=== PATIENT | female | born 1965 | race Caucasian/White ===

== ENCOUNTER 2017-10-09 08:30 | Emergency (ER) | payer BC ==
[2017-10-09 08:36] VITALS: BP 157/82; PULSE 97; RESP 18; TEMP 99.3
[2017-10-09] MEDS ORDERED: DIPH,PERTUS(ACELL)TETVAC-LF 0.5 ML VIAL IM ONE (08:55)
[2017-10-09] MEDS ORDERED: TOPICAL SKIN ADHESIVE 1 EACH AMP TOPICAL ONE (08:55)
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
== END 2017-10-09 09:30 | disposition home or self-care (01) ==
LOC: EC 08:30
DX: S01.312A Laceration without foreign body of left ear, initial encounter (principal); I10 Essential (primary) hypertension; Z23 Encounter for immunization; Z79.899 Other long term (current) drug therapy; Z88.2 Allergy status to sulfonamides; Z88.5 Allergy status to narcotic agent; Z91.013 Allergy to seafood; Z91.011 Allergy to milk products; Z91.018 Allergy to other foods; Z88.8 Allergy status to other drugs, medicaments and biological substances; Y09 Assault by unspecified means; Y92.009 Unspecified place in unspecified non-institutional (private) residence as the place of occurrence of the external cause
CPT/HCPCS: 12013; 90471; 90715; 99282

== ENCOUNTER 2017-11-03 13:29 | Observation (INO) | payer BC ==
[2017-11-03] MEDS ORDERED: ASPIRIN 81 MG PO STA (13:59)
[2017-11-03] MEDS ORDERED: NITROGLYCERIN OINT 1 INCH/GM PACKET TOPICAL STA (13:59)
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
[2017-11-03 14:19] LABS: Basophils % (A) 0 %; Eosinophils # (A) 0.3 k/uL (0-0.7); Eosinophils % (A) 3 %; HCT 40.2 % (34.0-46.0); HGB 12.8 gm/dL (11.4-16.0); Lymphocytes # (A) 2.8 k/uL (1.0-4.8); Lymphocytes % (A) 29 %; MCH 29.1 pg (25.0-35.0); MCHC 31.9 g/dL (31.0-37.0); MCV 91.3 fL (80.0-100.0); Mean Platelet Volume 7.5; Monocytes # (A) 0.3 k/uL (0-1.0); Monocytes % (A) 4 %; Neutrophils % (A) 62 %; Platelet Count 260 k/uL (150-450); RBC 4.41 m/uL (3.80-5.40); RDW 12.2 % (11.5-15.5); WBC 9.6 k/uL (3.8-10.6)
--- NOTE | 2017-11-03 14:27 | XR ---
EXAMINATION TYPE: XR chest 2V DATE OF EXAM: 11/03/2017 COMPARISON: 12/31/2014 INDICATION: Chest pain TECHNIQUE: Frontal and lateral views of the chest are obtained. FINDINGS: The heart size is normal. The pulmonary vasculature is normal. The lungs are clear. IMPRESSION: 1. No acute pulmonary process.
[2017-11-03 14:28] LABS: ALT 29 U/L (9-52); AST 19 U/L (14-36); Albumin 4.4 g/dL (3.5-5.0); Alkaline Phosphatase 98 U/L (38-126); Anion Gap 13 mmol/L; Blood Urea Nitrogen 14 mg/dL (7-17); Calcium 9.6 mg/dL (8.4-10.2); Carbon Dioxide 24 mmol/L (22-30); Chloride 104 mmol/L (98-107); Glucose 127 mg/dL (74-99); Magnesium 1.9 mg/dL (1.6-2.3); Potassium 3.9 mmol/L (3.5-5.1); Prothrombin Time 9.6 sec (9.0-12.0); Sodium 141 mmol/L (137-145); Total Bilirubin 0.3 mg/dL (0.2-1.3); Total Protein 7.8 g/dL (6.3-8.2)
[2017-11-03 14:39] LABS: Creatine Kinase 92 U/L (30-135)
[2017-11-03 14:52] LABS: Creatine Kinase MB 0.6 ng/mL (0.0-2.4); Troponin I <0.012 ng/mL (0.000-0.034)
[2017-11-03 14:55] LABS: Partial Thromboplastin Time 21.2 sec (22.0-30.0)
[2017-11-03] MEDS ORDERED: NITROGLYCERIN SL TABS 0.4 MG TAB SUBLINGUAL PRN (15:41)
[2017-11-03] MEDS: NITROGLYCERIN OINT 1 INCH/GM PACKET TOPICAL SCH ×2 (19:20→22:38)
[2017-11-03 20:15] LABS: Creatine Kinase 75 U/L (30-135)
[2017-11-03] MEDS ORDERED: ONDANSETRON 4 MG/2 ML VIAL IVP PRN (20:26)
[2017-11-03 20:29] LABS: Creatine Kinase MB 0.4 ng/mL (0.0-2.4); Troponin I <0.012 ng/mL (0.000-0.034)
[2017-11-03] MEDS ORDERED: MONTELUKAST 10 MG TAB PO SCH (21:00)
[2017-11-03] MEDS ORDERED: LISINOPRIL 10 MG TAB PO SCH (21:00)
[2017-11-04 03:27] LABS: Cholesterol 206 mg/dL (<200); HDL Cholesterol 57 mg/dL (40-60); LDL Cholesterol,Calculated 116 mg/dL (0-99); Triglycerides 163 mg/dL (<150)
[2017-11-04 03:44] LABS: Creatine Kinase 72 U/L (30-135)
[2017-11-04 03:58] LABS: Creatine Kinase MB 0.3 ng/mL (0.0-2.4); Troponin I <0.012 ng/mL (0.000-0.034)
[2017-11-04] MEDS: NITROGLYCERIN OINT 1 INCH/GM PACKET TOPICAL SCH ×2 (05:05→13:28)
[2017-11-04] MEDS ORDERED: ASPIRIN 325 MG TAB PO SCH (09:00)
--- NOTE | 2017-11-04 09:23 | P.CRDCN ---
History of Present Illness Consult date: 11/04/17 History of present illness: This is a 52-year-old female with history of hypertensive coronary vascular disease being treated with lisinopril has been feeling exhausted for the last 6 months. She also complains of intermittent swelling in the right leg. Yesterday she woke up with the feeling of tightness in the chest. This is followed by some vague feeling in the left arm. Patient finally came to the emergency room. She was treated with the night to placed on heparin with gradual improvement of her symptoms. She is feeling better today. Her EKGs did not show any acute changes. Cardiac enzyme studies are negative. I'm going to order d-dimer and also TSH and free T4. I'm going to get an echocardiogram done. If necessary, a venous duplex study of the right leg could be an considered, especially if d-dimer is elevated. Further recommendation to follow Past Medical History Past Medical History: Asthma, Diabetes Mellitus, Hyperlipidemia, Hypertension Additional Past Medical History / Comment(s): past stress test approx 9 years ago,pt stated dm but chooses not to take the medications, History of Any Multi-Drug Resistant Organisms: None Reported Past Surgical History: Section, Cholecystectomy, Hernia Repair Past Anesthesia/Blood Transfusion Reactions: No Reported Reaction Smoking Status: Former smoker - Past Family History Father Family Medical History: COPD, Diabetes Mellitus, Hyperlipidemia, Hypertension Additional Family Medical History / Comment(s): . Mother Family Medical History: Diabetes Mellitus, Hyperlipidemia, Hypertension, Mitral Valve Prolapse (MVP), Renal Disease Medications and Allergies Home Medications Medication Instructions Recorded Confirmed Type Cetirizine HCl [Zyrtec] 10 mg PO DAILY PRN 12/31/14 11/03/17 History Lisinopril [Zestril] 10 mg PO HS 12/31/14 11/03/17 History Montelukast [Singulair] 10 mg PO HS 12/31/14 11/03/17 History Albuterol Nebulized [Ventolin 2.5 mg INHALATION RT-Q6H PRN 10/09/17 11/03/17 History Nebulized] cloNIDine HCL [Catapres] 0.1 mg PO DAILY PRN 10/09/17 11/03/17 History Fluticasone Nasal [place] [Flonase 1 spray EA NOSTRIL DAILY PRN 11/03/17 11/03/17 History Nasal [place]] Allergies Allergy/AdvReac Type Severity Reaction Status Date / Time avocado Allergy Unknown Verified 11/03/17 14:51 Fish Containing Products Allergy Unknown Verified 11/03/17 14:51 [Fish] milk Allergy Unknown Verified 11/03/17 14:51 shellfish derived [Shrimp] Allergy Unknown Verified 11/03/17 14:51 codeine AdvReac Hallucinati Verified 11/03/17 14:51 ons ezetimibe [From Zetia] AdvReac Swelling Verified 11/03/17 14:51 Sulfa (Sulfonamide AdvReac Cough Verified 11/03/17 14:51 Antibiotics) Physical Exam Vitals: Vital Signs Temp Pulse Pulse Pulse Resp BP BP 11/04/17 08:00 98.2 F 68 18 137/87 11/04/17 07:59 71 16 11/04/17 04:00 98.7 F 71 16 130/77 11/04/17 03:54 18 11/03/17 23:36 18 11/03/17 22:11 77 18 128/63 11/03/17 20:00 18 11/03/17 19:41 97.9 F 72 18 167/76 11/03/17 17:21 16 11/03/17 16:38 97.8 F 65 16 150/72 11/03/17 16:13 85 16 135/75 11/03/17 15:14 64 16 137/75 11/03/17 14:16 68 16 138/77 11/03/17 13:38 98.7 F 87 16 163/74 Pulse Ox 11/04/17 08:00 96 11/04/17 07:59 11/04/17 04:00 95 11/04/17 03:54 11/03/17 23:36 11/03/17 22:11 94 L 11/03/17 20:00 11/03/17 19:41 93 L 11/03/17 17:21 11/03/17 16:38 97 11/03/17 16:13 97 11/03/17 15:14 99 11/03/17 14:16 98 11/03/17 13:38 93 L Intake and Output 11/03/17 11/04/17 11/04/17 22:59 06:59 14:59 Other: Voiding Method Toilet Toilet Toilet GENERAL EXAM: Patient is alert and oriented and doesn't appear to be in any acute distress HEENT: Normocephalic. Normal reaction of pupils, equal size, normal range of extraocular motion. No erythema or exudates in the throat. NECK: No masses, no nuchal rigidity. CHEST: No chest wall deformity. LUNGS: Equal air entry with no crackles or wheeze. HEART: S1 and S2 normal with no audible mumurs or gallops. Regular rhythm, femorals equal on both sides.. ABDOMEN: No hepatosplenomegaly, normal bowel sounds, no guarding or rigidity. SKIN: No rashes CENTRAL NERVOUS SYSTEM: No focal deficits. EXTREMITIES: No cyanosis, clubbing or edema. Results 11/03/17 14:05 11/03/17 14:05 Cardiac Enzymes 11/03/17 11/03/17 11/03/17 Range/Units 14:05 14:05 19:34 AST 19 (14-36) U/L CK-MB (CK-2) 0.6 0.4 (0.0-2.4) ng/mL Troponin I <0.012 <0.012 (0.000-0.034) ng/mL 11/04/17 Range/Units 02:51 AST (14-36) U/L CK-MB (CK-2) 0.3 (0.0-2.4) ng/mL Troponin I <0.012 (0.000-0.034) ng/mL Coagulation 11/03/17 Range/Units 14:05 PT 9.6 (9.0-12.0) sec APTT 21.2 L (22.0-30.0) sec Lipids 11/04/17 Range/Units 02:51 Triglycerides 163 H (<150) mg/dL Cholesterol 206 H (<200) mg/dL HDL Cholesterol 57 (40-60) mg/dL CBC 11/03/17 Range/Units 14:05 WBC 9.6 (3.8-10.6) k/uL RBC 4.41 (3.80-5.40) m/uL Hgb 12.8 (11.4-16.0) gm/dL Hct 40.2 (34.0-46.0) % Plt Count 260 (150-450) k/uL Comprehensive Metabolic Panel 11/03/17 Range/Units 14:05 Sodium 141 (137-145) mmol/L Potassium 3.9 (3.5-5.1) mmol/L Chloride 104 (98-107) mmol/L Carbon Dioxide 24 (22-30) mmol/L BUN 14 (7-17) mg/dL Creatinine 0.80 (0.52-1.04) mg/dL Glucose 127 H (74-99) mg/dL Calcium 9.6 (8.4-10.2) mg/dL AST 19 (14-36) U/L ALT 29 (9-52) U/L Alkaline Phosphatase 98 (38-126) U/L Total Protein 7.8 (6.3-8.2) g/dL Albumin 4.4 (3.5-5.0) g/dL Current Medications Generic Name Dose Route Start Last Admin Trade Name Freq PRN Reason Stop Dose Admin Aspirin 325 mg 11/04/17 09:00 Aspirin PO DAILY [facility] Lisinopril 10 mg 11/03/17 21:00 11/03/17 20:27 Zestril PO 10 mg HS BRAYAN Administration Montelukast Sodium 10 mg 11/03/17 21:00 11/03/17 20:27 Singulair PO 10 mg HS BRAYAN Administration Nitroglycerin 1 inch 11/03/17 18:00 11/04/17 05:05 Nitro-Bid Oint TOPICAL Not Given Q6HR [facility] Nitroglycerin 0.4 mg 11/03/17 15:41 Nitrostat SUBLINGUAL Q5M PRN Chest Pain Ondansetron HCl 4 mg 11/03/17 20:26 Zofran IVP Q6HR PRN Nausea And Vomiting Intake and Output 11/03/17 11/04/17 11/04/17 22:59 06:59 14:59 Other: Voiding Method Toilet Toilet Toilet 11/03/17 14:05 11/03/17 14:05 EKG Interpretations (text) Sinus rhythm Assessment and Plan (1) Fatigue Current Visit: Yes Status: Acute Code(s): R53.83 - OTHER FATIGUE SNOMED Code(s): 73814579 (2) Hypertension Current Visit: Yes Status: Acute Code(s): I10 - ESSENTIAL (PRIMARY) HYPERTENSION SNOMED Code(s): 66892689 (3) Chest pain Current Visit: Yes Status: Acute Code(s): R07.9 - CHEST PAIN, UNSPECIFIED SNOMED Code(s): 31786643 (4) Right leg swelling Current Visit: Yes Status: Acute Code(s): M79.89 - OTHER SPECIFIED SOFT TISSUE DISORDERS SNOMED Code(s): 329397356 Plan: Patient EKGs and blood work are so far normal. I will get a d-dimer value and thyroid function studies. Echocardiogram will be done. Further recommendations to follow.
[2017-11-04 12:07] VITALS: BP 141/65; PULSE 72; RESP 16; TEMP 98.1
--- NOTE | 2017-11-04 13:55 | ECHOF ---
Referral Reason:Chest pain and cardiomyopathy MEASUREMENTS -------- HEIGHT: 160.0 cm WEIGHT: 109.8 kg BP: 137/87 IVSd: 1.6 cm (0.6 - 1.1) LVIDd: 4.7 cm (3.9 - 5.3) LVPWd: 1.5 cm (0.6 - 1.1) IVSs: 2.5 cm LVIDs: 2.9 cm LVPWs: 2.0 cm Ao Diam: 3.0 cm (2.0 - 3.7) AV Cusp: 2.0 cm (1.5 - 2.6) LA Diam: 3.7 cm (2.7 - 3.8) MV EXCURSION: 14.577 mm (> 18.000) MV EF SLOPE: 62 mm/s (70 - 150) EPSS: 0.5 cm MV E Kailash: 1.03 m/s MV DecT: 222 ms MV A Kailash: 0.76 m/s MV E/A Ratio: 1.36 RAP: 5.00 mmHg RVSP: 14.52 mmHg FINDINGS -------- Sinus rhythm. This was a technically good study. The left ventricular size is normal. There is moderate concentric left ventricular hypertrophy. L eft ventricular systolic function is hyperdynamic with an estimated EF of >70%. The right ventricle is normal in size. The left atrium is normal in size. The right atrium is normal in size. Aortic valve is trileaflet and is mildly thickened. There is trace mitral regurgitation. Trace tricuspid regurgitation present. The right ventricular systolic pressure, as measured by Dopp ler, is 14.52mmHg. Pulmonic valve appears structurally normal. The aortic root size is normal. The pericardium is normal. CONCLUSIONS -------- 1. Sinus rhythm. 2. This was a technically good study. 3. The left ventricular size is normal. 4. There is moderate concentric left ventricular hypertrophy. 5. Left ventricular systolic function is hyperdynamic with an estimated EF of >70%. 6. The right ventricle is normal in size. 7. The left atrium is normal in size. 8. The right atrium is normal in size. 9. Aortic valve is trileaflet and is mildly thickened. 10. There is trace mitral regurgitation. 11. Trace tricuspid regurgitation present. 12. The right ventricular systolic pressure, as measured by Doppler, is 14.52mmHg. 13. Pulmonic valve appears structurally normal. 14. The aortic root size is normal. 15. The pericardium is normal. [employer]PHOL[employer]O TRIMMER: Thi Robles RDCS
--- NOTE | 2017-11-04 23:23 | HP ---
HISTORY AND PHYSICAL CHIEF COMPLAINT: Chest pain. HISTORY OF PRESENT ILLNESS: This 52-year-old woman who had a past medical history of multiple medical problems, including diabetes, asthma, hypertension, hyperlipidemia. Two recent stress tests about 9 years ago, is complaining of chest pain. The pain started around 3:00 a.m. last night and felt in the upper chest like a steady pressure and some associated shortness of breath and nausea was noted and the patient had some odd sensation in the left arm also and the patient came to [facility] and admitted for further evaluation and treatment. The troponins are negative. The lipids are elevated, the cholesterol 201, LDL 111 and Cardiology saw the patient and recommended the patient to follow up in the outpatient setting with possible stress test. A 2D echo was also done which did not show any acute abnormality. Ejection fraction found to be more than 70. PAST MEDICAL HISTORY: History of asthma, diabetes, hypertension, hyperlipidemia. MEDICATIONS PRIOR TO ADMISSION: Include: 1. Fluticasone 1 spray daily p.r.n. 2. Catapres 0.1 daily p.r.n. 3. Singulair 10 mg daily. 4. Zestril 10 mg q.h.s. 5. Zyrtec 10 mg b.i.d. p.r.n. 6. Ventolin 2.5 every 6 hours. 7. Nitrostat 0.4 sublingual p.r.n. 8. Ecotrin 81 mg daily. ALLERGIES: Are AV[place]ADO, FISH, MILK, SHELLFISH, CODEINE, ZETIA, SULFA. FAMILY HISTORY: History of COPD, diabetes, hypertension. SOCIAL HISTORY: History of smoking, occasional alcohol intake. REVIEW OF SYSTEMS: ENT: No diminished hearing, diminished vision. CARDIOVASCULAR: As mentioned earlier. RESPIRATORY: As mentioned earlier. GI: No nausea or vomiting. : No dysuria. NERVOUS: No numbness or weakness. ALLERGY/IMMUNOLOGY: As mentioned earlier, history of asthma. CONSTITUTIONAL: As mentioned earlier. DERMATOLOGY: Negative. RHEUMATOLOGY: Negative. PSYCHIATRY: As mentioned earlier. EXAMINATION: Alert and oriented x3. Pulse is 72, blood pressure 141/68, respirations 16, temperature 98.2, pulse ox 96% on room air. HEENT: Conjunctivae normal. Oral mucosa moist. NECK: No jugular venous distention. No carotid bruits. No lymph node enlargement. CARDIOVASCULAR: S1, S2 muffled. No S3. No S4. RESPIRATORY: Breath sounds diminished in the bases. A few scattered rhonchi and crackles. ABDOMEN: Soft, nontender. No mass palpable. LEGS: No edema. No swelling. NERVOUS SYSTEM: Higher functions as mentioned earlier. Moves all 4 limbs. No focal motor or sensory deficits. LYMPHATIC: No lymphadenopathy in neck or axillae. SKIN: No ulcer, rash or bleeding. LAB STUDIES: At this time shows CBC within normal limits. Troponins are negative. Cholesterol 206. ASSESSMENT: 1. Chest pain, myocardial infarction ruled out, possible musculoskeletal. Rule out coronary artery disease. 2. History of diabetes mellitus. 3. Hypertension. 4. Hyperlipidemia. 5. History of asthma. 6. History of cholecystectomy. RECOMMENDATIONS AND DISCUSSION: In this 52-year-old woman who presented with multiple complex medical issues, will monitor the patient. The patient is symptomatic at this time. Otherwise, myocardial infarction ruled out. Cardiology saw the patient. 2D echo did not show any acute abnormality. The patient will be discharged in a stable condition with a guarded prognosis with cardiology recommendations for possible outpatient stress test. Home medications to be continued and along with recommended medications: 1. Albuterol 2.5 q.i.d. p.r.n. 2. Ecotrin 81 mg. 3. Zyrtec 10 mg daily. 4. Catapres 0.1 p.r.n. 5. Flonase p.r.n. 6. Zestril 10 mg q.h.s. 7. Singular 10 mg q.h.s. 8. Nitrostat 0.4 mg sublingual p.r.n. MMJESSIE / LIONELN: [id number] /
== END 2017-11-04 13:31 | disposition home or self-care (01) ==
LOC: EC 13:29 → 3OBS 15:41 → 3SUR 18:58
PROVIDERS: ADMIT Internal Medicine; ATTEND Internal Medicine
DX: R07.89 Other chest pain (principal); R11.0 Nausea; R06.00 Dyspnea, unspecified; R53.83 Other fatigue; E11.9 Type 2 diabetes mellitus without complications; I11.9 Hypertensive heart disease without heart failure; E78.5 Hyperlipidemia, unspecified; M79.89 Other specified soft tissue disorders; J45.909 Unspecified asthma, uncomplicated; Z91.14 Patient's other noncompliance with medication regimen; Z79.899 Other long term (current) drug therapy; Z79.82 Long term (current) use of aspirin; Z91.011 Allergy to milk products; Z88.5 Allergy status to narcotic agent; Z91.013 Allergy to seafood; Z88.2 Allergy status to sulfonamides; Z88.8 Allergy status to other drugs, medicaments and biological substances; Z91.018 Allergy to other foods; Z87.891 Personal history of nicotine dependence; Z82.5 Family history of asthma and other chronic lower respiratory diseases; Z82.49 Family history of ischemic heart disease and other diseases of the circulatory system; Z90.49 Acquired absence of other specified parts of digestive tract
CPT/HCPCS: 36415; 71046; 80053; 80061; 82550; 82553; 83735; 84443; 84484; 85025; 85379; 85610; 85730; 93005; 93306; 99285

== ENCOUNTER 2022-12-14 07:52 | Emergency (ER) | payer BC ==
[2022-12-14 07:58] VITALS: RESP 18
[2022-12-14] MEDS ORDERED: SODIUM CHLORIDE 0.9% 1,000 ML IV STA (08:24)
[2022-12-14] MEDS ORDERED: ONDANSETRON 4 MG/2 ML VIAL IVP STA (08:24)
--- NOTE | 2022-12-14 08:28 | ED ---
General Adult HPI - General Chief complaint: Nausea/Vomiting/Diarrhea Stated complaint: NVD Time Seen by Provider: 12/14/22 08:07 Source: patient, RN notes reviewed, old records reviewed Mode of arrival: ambulatory Limitations: no limitations - History of Present Illness Initial comments: 57-year-old female with chief complaint of vomiting and diarrhea. She was diagnosed with coronavirus one week ago. She initially had sore throat with no gastrointestinal symptoms. Over the past 3 days she developed foul-smelling belching and subsequently developed vomiting and diarrhea. Over the past 12 hours she's had more than 10 episodes of both vomiting and diarrhea. She does have upper abdominal pain associated with this. - Related Data Home Medications Medication Instructions Recorded Confirmed Cetirizine HCl [Zyrtec] 10 mg PO DAILY PRN 12/31/14 11/03/17 Montelukast [Singulair] 10 mg PO HS 12/31/14 11/03/17 lisinopriL [Zestril] 10 mg PO HS 12/31/14 11/03/17 Albuterol Nebulized [Ventolin 2.5 mg INHALATION RT-Q6H PRN 10/09/17 11/03/17 Nebulized] cloNIDine HCL [Catapres] 0.1 mg PO DAILY PRN 10/09/17 11/03/17 Fluticasone Nasal [place] [Flonase 1 spray EA NOSTRIL DAILY PRN 11/03/17 11/03/17 Nasal [place]] Previous Rx's Medication Instructions Recorded Aspirin EC [Ecotrin Low Dose] 81 mg PO DAILY #20 tablet. 11/04/17 Nitroglycerin Sl Tabs [Nitrostat] 0.4 mg SUBLINGUAL Q5M PRN #20 tab 11/04/17 Allergies Allergy/AdvReac Type Severity Reaction Status Date / Time avocado Allergy Unknown Verified 11/03/17 14:51 Fish Containing Products Allergy Unknown Verified 11/03/17 14:51 [Fish] milk Allergy Unknown Verified 11/03/17 14:51 shellfish derived [Shrimp] Allergy Unknown Verified 11/03/17 14:51 codeine AdvReac Hallucinati Verified 11/03/17 14:51 ons ezetimibe [From Zetia] AdvReac Swelling Verified 11/03/17 14:51 Sulfa (Sulfonamide AdvReac Cough Verified 11/03/17 14:51 Antibiotics) Review of Systems ROS Statement: Those systems with pertinent positive or pertinent negative responses have been documented in the HPI. ROS Other: All systems not noted in ROS Statement are negative. Past Medical History Past Medical History: Asthma, Diabetes Mellitus, Hyperlipidemia, Hypertension Additional Past Medical History / Comment(s): past stress test approx 9 years ago,pt stated dm but chooses not to take the medications, History of Any Multi-Drug Resistant Organisms: None Reported Past Surgical History: Section, Cholecystectomy, Hernia Repair Past Anesthesia/Blood Transfusion Reactions: No Reported Reaction Past Psychological History: No Psychological Hx Reported Smoking Status: Former smoker Past Alcohol Use History: Occasional Past Drug Use History: Marijuana - Past Family History Father Family Medical History: COPD, Diabetes Mellitus, Hyperlipidemia, Hypertension Additional Family Medical History / Comment(s): . Mother Family Medical History: Diabetes Mellitus, Hyperlipidemia, Hypertension, Mitral Valve Prolapse (MVP), Renal Disease General Exam Limitations: no limitations General appearance: alert, in no apparent distress Head exam: Present: atraumatic, normocephalic Eye exam: Present: normal appearance, PERRL ENT exam: Present: mucous membranes dry Neck exam: Present: normal inspection. Absent: tenderness, meningismus Respiratory exam: Present: normal lung sounds bilaterally. Absent: respiratory distress, wheezes Cardiovascular Exam: Present: regular rate, normal rhythm GI/Abdominal exam: Present: distended, tenderness. Absent: guarding, rebound Extremities exam: Present: normal inspection, normal capillary refill. Absent: pedal edema Neurological exam: Present: alert, oriented X3, CN II-XII intact. Absent: motor sensory deficit Psychiatric exam: Present: normal affect, normal mood Skin exam: Present: warm, dry, intact. Absent: cyanosis, diaphoretic Course Vital Signs 12/14/22 07:53 Temperature 98.2 F Pulse Rate 103 H Respiratory 18 Rate Blood Pressure 112/79 O2 Sat by Pulse 94 L Oximetry Medical Decision Making - Medical Decision Making Was pt. sent in by a medical professional or institution ([facility], [facility], urgent care, hospital, or detention...) When possible be specific @ -No Did you speak to anyone other than the patient for history (EMS, parent, family, police, friend...)? What history was obtained from this source @ -No Did you review nursing and triage notes (agree or disagree)? Why? @ -I reviewed and agree with nursing and triage notes Were old charts reviewed (outside hosp., previous admission, EMS record, old EKG, old radiological studies, urgent care reports/EKG's, detention records)? Report findings @ -No old charts were reviewed Differential Diagnosis (chest pain, altered mental status, abdominal pain women, abdominal pain men, vaginal bleeding, weakness, fever, dyspnea, syncope, headache, dizziness, GI bleed, back pain, seizure, CVA, palpatations, mental health, musculoskeletal)? @ -Differential Abdominal Pain Women: Appendicitis, Cholecystitis, diverticulosis, ischemic bowel, pancreatitis, hepatitis, UTI, gastroenteritis, AAA, incarcerated hernia, bowel obstruction, constipation, inflammatory bowel, hepatitis, peptic ulcer disease, splenic infarction, perforated viscus, vulvitis, ovarian torsion, PID, kidney stone, placenta abruption, this is not meant to be an all-inclusive list EKG interpreted by me (3pts min.). @ -As above X-rays interpreted by me (1pt min.). @ -None done CT interpreted by me (1pt min.). @ -Performed showing a mild colitis, no other acute findings, reviewed by tamie f U/S interpreted by me (1pt. min.). @ -None done What testing was considered but not performed or refused? (CT, X-rays, U/S, labs)? Why? @ -None What meds were considered but not given or refused? Why? @ -I did offer pain medication but patient declined Did you discuss the management of the patient with other professionals (professionals i.e. , PA, [facility], lab, RT, psych nurse, mental health social worker, professional bass fisher, teacher, parking control officer, dependency case manager)? Give summary @ -No Was smoking cessation discussed for >3mins.? @ -No Was critical care preformed (if so, how long)? @ -No Were there social determinants of health that impacted care today? How? (Homelessness, low income, unemployed, alcoholism, drug addiction, transportation, low edu. Level, literacy, decrease access to med. care, detention, rehab)? @ -No Was there de-escalation of care discussed even if they declined (Discuss DNR or withdrawal of care, Hospice)? DNR status @ -No What co-morbidities impacted this encounter? (DM, HTN, Smoking, COPD, CAD, Cancer, CVA, ARF, Chemo, Hep., AIDS, mental health diagnosis, sleep apnea, mor bid obesity)? @ -None Was patient admitted / discharged? Hospital course, mention meds given and route, prescriptions, significant lab abnormalities, going to OR and other pertinent info. @ -57-year-old female with abdominal pain, vomiting diarrhea. History and exam consistent with an enteritis colitis picture. I did perform laboratory testing which showed a mild leukocytosis, stable hemoglobin, normal kidney function, normal electrolytes. CT was performed the ongoing nature of her symptoms. This showed colitis without any other acute findings. Patient hydrated in the emergency department. She is informed of the results of workup and will be discharged with outpatient follow-up at this time. Undiagnosed new problem with uncertain prognosis? @ -No Drug Therapy requiring intensive monitoring for toxicity (Heparin, Nitro, Insulin, Cardizem)? @ -No Were any procedures done? @ -No Diagnosis/symptom? @ -Vomiting diarrhea, abdominal pain Acute, or Chronic, or Acute on Chronic? @ -Acute Uncomplicated (without systemic symptoms) or Complicated (systemic symptoms)? @ -Uncomplicated Side effects of treatment? @ -No Exacerbation, Progression, or Severe Exacerbation? @ -No Poses a threat to life or bodily function? How? (Chest pain, [place], [place], pneumonia, PE, COPD, DKA, ARF, appy, cholecystitis, CVA, Diverticulitis, Homicidal, Suicidal, threat to staff... and all critical care pts) @ -No - Lab Data Result diagrams: 12/14/22 08:25 12/14/22 08:25 Lab Results 12/14/22 12/14/22 Range/Units 08:25 08:25 WBC 12.0 H (3.8-10.6) k/uL RBC 5.07 (3.80-5.40) m/uL Hgb 15.3 (11.4-16.0) gm/dL Hct 45.0 (34.0-46.0) % MCV 88.8 (80.0-100.0) fL MCH 30.1 (25.0-35.0) pg MCHC 33.9 (31.0-37.0) g/dL RDW 12.6 (11.5-15.5) % Plt Count 302 (150-450) k/uL MPV 7.4 Neutrophils % 79 % Lymphocytes % 15 % Monocytes % 3 % Eosinophils % 2 % Basophils % 0 % Neutrophils # 9.5 H (1.3-7.7) k/uL Lymphocytes # 1.8 (1.0-4.8) k/uL Monocytes # 0.3 (0-1.0) k/uL Eosinophils # 0.2 (0-0.7) k/uL Basophils # 0.0 (0-0.2) k/uL Sodium 138 (137-145) mmol/L Potassium 4.0 (3.5-5.1) mmol/L Chloride 108 H (98-107) mmol/L Carbon Dioxide 20 L (22-30) mmol/L Anion Gap 10 mmol/L BUN 18 H (7-17) mg/dL Creatinine 0.84 (0.52-1.04) mg/dL Est GFR (CKD-EPI)AfAm 89 (>60 ml/min/1.73 sqM) Est GFR (CKD-EPI)NonAf 77 (>60 ml/min/1.73 sqM) Glucose 165 H (74-99) mg/dL Calcium 9.3 (8.4-10.2) mg/dL Total Bilirubin 0.7 (0.2-1.3) mg/dL AST 26 (14-36) U/L ALT 24 (4-34) U/L Alkaline Phosphatase 79 (38-126) U/L Total Protein 7.3 (6.3-8.2) g/dL Albumin 4.4 (3.5-5.0) g/dL Lipase 123 (23-300) U/L Disposition Clinical Impression: Dehydration, Vomiting and diarrhea Disposition: HOME SELF-CARE Condition: Good Instructions (If sedation given, give patient instructions): Acute Nausea and Vomiting (ED), Acute Diarrhea (ED) Is patient prescribed a controlled substance at d/c from ED?: No Referrals: Linda Winter MD [Primary Care Provider] - 1-2 days Time of Disposition: 10:49
[2022-12-14 08:33] LABS: Basophils % (A) 0 %; Eosinophils # (A) 0.2 k/uL (0-0.7); Eosinophils % (A) 2 %; HGB 15.3 gm/dL (11.4-16.0); Lymphocytes # (A) 1.8 k/uL (1.0-4.8); Lymphocytes % (A) 15 %; MCH 30.1 pg (25.0-35.0); MCHC 33.9 g/dL (31.0-37.0); MCV 88.8 fL (80.0-100.0); Mean Platelet Volume 7.4; Monocytes # (A) 0.3 k/uL (0-1.0); Monocytes % (A) 3 %; Neutrophils # (A) 9.5 k/uL (1.3-7.7); Neutrophils % (A) 79 %; Platelet Count 302 k/uL (150-450); RBC 5.07 m/uL (3.80-5.40); RDW 12.6 % (11.5-15.5)
[2022-12-14 08:42] LABS: Albumin 4.4 g/dL (3.5-5.0); Calcium 9.3 mg/dL (8.4-10.2); Total Bilirubin 0.7 mg/dL (0.2-1.3); Total Protein 7.3 g/dL (6.3-8.2)
--- NOTE | 2022-12-14 10:25 | CT ---
EXAMINATION TYPE: CT abdomen pelvis w con DATE OF EXAM: 12/14/2022 HISTORY: N/V/D CT DLP: 1630.4mGycm Automated Exposure Control for Dose Reduction was Utilized. CONTRAST: CT scan of the abdomen and pelvis is performed without oral and with IV Contrast, patient injected wi th 100 mL of Isovue 300. COMPARISON: CT abdomen and pelvis April 17, 2011 FINDINGS: LUNG BASES: No significant abnormality is appreciated. LIVER/GB: Liver is diffusely low dense consistent with diffuse fatty infiltration. Cholecystectomy cl ips are redemonstrated. PANCREAS: No significant abnormality is seen. SPLEEN: No significant abnormality is seen. ADRENALS: No significant abnormality is seen. KIDNEYS: No significant abnormality is seen. BOWEL: No suspicious small or large bowel dilatation. Fluid with air-fluid levels is present in the c olon. No free air. UTERUS/ADNEXA: Anteverted uterus. LYMPH NODES: No greater than 1cm abdominal or pelvic lymph nodes are appreciated. OSSEOUS STRUCTURES: Moderate disc space narrowing L4-L5 and L5-S1 levels. Facet arthropathy lower lum bar levels. OTHER: Small fat-containing umbilical hernia is redemonstrated. There is additional right upper abdom inal ventral wall hernia containing fat axial image 24 redemonstrated. IMPRESSION: No bowel obstruction. Fluid within the colon is consistent with diarrhea and/or a mild co litis.
[2022-12-14 11:13] VITALS: BP 130/77
[2022-12-14 11:59] VITALS: PULSE 98; TEMP 98
== END 2022-12-14 12:00 | disposition home or self-care (01) ==
LOC: EC 07:52
DX: E86.0 Dehydration (principal); K52.9 Noninfective gastroenteritis and colitis, unspecified; D72.829 Elevated white blood cell count, unspecified; E11.9 Type 2 diabetes mellitus without complications; I10 Essential (primary) hypertension; E78.5 Hyperlipidemia, unspecified; J45.909 Unspecified asthma, uncomplicated; F12.90 Cannabis use, unspecified, uncomplicated; Z87.891 Personal history of nicotine dependence; Z79.899 Other long term (current) drug therapy; Z79.51 Long term (current) use of inhaled steroids; Z88.2 Allergy status to sulfonamides; Z88.5 Allergy status to narcotic agent; Z88.8 Allergy status to other drugs, medicaments and biological substances; Z91.018 Allergy to other foods; Z91.011 Allergy to milk products; Z91.013 Allergy to seafood; Z90.49 Acquired absence of other specified parts of digestive tract
CPT/HCPCS: 36415; 80053; 83690; 85025; 74177; 99284; 96374; 96361 ×3; J2405; Q9967